=== PATIENT | male | born 1950 | race Caucasian/White ===

== ENCOUNTER 2018-01-03 06:07 | Inpatient (IN) | payer OTHER ==
[2017-12-12 11:13] VITALS: Ht 175.3 cm; Wt 96.6 kg
--- NOTE | 2017-12-12 11:35 | PAT Medication Instructions ---
Service Date Dec 12, 2017. Current Home Medication List Allopurinol (Zyloprim), 300 MG PO QAM Fenofibrate Micronized (Fenofibrate), 48 MG PO QAM Lisinopril (Zestril), 5 MG PO QAM Simvastatin (Zocor), 80 MG PO QAM Medication Instructions For Your Scheduled Surgery - Hold the following medications 48 hours prior to surgery: Fenofibrate Micronized (Fenofibrate), 48 MG PO QAM - Hold the following medications the morning of surgery: Lisinopril (Zestril), 5 MG PO QAM - Take the following medications the morning of surgery with a sip of water: Simvastatin (Zocor), 80 MG PO QAM Allopurinol (Zyloprim), 300 MG PO QAM If you have any questions please call us at [phone] or [phone] or [phone]
[2017-12-12 12:09] LABS: BASO % 1.2 %; BASO ABS # 0.11 K/uL (0-0.2); EOS % 3.5 %; EOS ABS # 0.33 K/uL (0-0.5); IG# 0.07 K/uL (0.00-0.02); LYMPH % 30.7 %; LYMPH ABS # 2.91 K/uL (1.2-3.4); MEAN CELL VOLUME 95.1 fL (80-100); MEAN CORPUSCULAR HEMOGLOBIN 33.2 pg (25-34); MEAN CORPUSCULAR HGB CONC 34.9 g/dl (32-36); MONO % 7.6 %; MONO ABS # 0.72 K/uL (0.11-0.59); NEUT % 56.3 %; NEUT ABS # 5.33 K/uL (1.4-6.5); PLATELET COUNT 239 K/uL (130-400); RED CELL DISTRIBUTION WIDTH CV 12.5 % (11.5-14.5); RED CELL DISTRIBUTION WIDTH SD 42.9 fL (36.4-46.3); WHITE BLOOD COUNT 9.47 K/uL (4.8-10.8)
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
[2017-12-12 14:05] LABS: CALCIUM 9.6 mg/dl (8.5-10.1); CREATININE 0.74 mg/dl (0.60-1.40); POTASSIUM 4.4 mmol/L (3.5-5.1)
[2018-01-03] VITALS (10 sets, daily range): BP systolic 107–172; BP diastolic 65–86; PULSE 59–88; TEMP 36.4–36.8; O2SAT 95–99
[~2018-01-03] VITALS: Ht 175.3 cm; Wt 96.6 kg
[~2018-01-03 06:07] MED LIST: ALLO300T80 PO; CEFAZOLIN 2000MG IV PUSH 15 ML IV SCH; FENO1CAP PO; LACTATED RINGER'S 1000ML 1,000 ML IV SCH; LISI-461 PO; SIMV80TA5 PO
[2018-01-03] MEDS ORDERED: FENTANYL CITRATE INJ 50 MCG/1 ML 2 ML VIAL ONE ×4 (06:43→08:57)
[2018-01-03] MEDS ORDERED: MIDAZOLAM HCL 1 MG/ML 2ML VIAL ONE (06:43)
[2018-01-03] MEDS ORDERED: BACITRACIN 50000 UNIT VIAL ONE (06:53)
[2018-01-03] MEDS ORDERED: BUPIVACAINE/EPINEPHRINE 0.5% MPF 1:200,000 30 ML VIAL ONE (06:53)
--- NOTE | 2018-01-03 07:30 | History & Physical Bridge Note ---
H&P Re-Evaluation Bridge Note: I have examined the patient, reviewed the History & Physical and in the interval since the performance of the History & Physical I have noted the following changes of clinical significance: No changes noted
--- NOTE | 2018-01-03 07:31 | History and Physical ---
History & Physical Date Jan 03, 2018. Chief Complaint . Back and leg pain History of Present Illness The patient is a 67 year old male with complaints of back and leg pain Additional History Hepatic Disease: No Endocrine Disorder: No Kidney Disease: No Hypertension: Yes Heart Disease: No Bleeding Tendencies: No Infectious Diseases: No Allergies Coded Allergies: No Known Allergies (Unverified , 01/03/18) Home Medications Scheduled Allopurinol (Zyloprim), 300 MG PO QAM Fenofibrate Micronized (Fenofibrate), 48 MG PO QAM Lisinopril (Zestril), 5 MG PO QAM Simvastatin (Zocor), 80 MG PO QAM Physical Examination Skin: warm/dry, no rash Eyes: normal inspection, EOMI, sclerae normal ENT: normal ENT inspection, pharynx normal Head: normocephalic, atraumatic Neck: supple, no adenopathy, trachea midline Respiratory/Chest: lungs clear, normal breath sounds, no respiratory distress Cardiovascular: regular rate, rhythm, no edema, no murmur Abdomen / GI: normal bowel sounds, non tender Back: normal inspection Extremities: normal inspection, normal range of motion Neurologic/Psych: no motor/sensory deficits, alert, normal reflexes, oriented x 3 Diagnosis Lumbar spinal stenosis Plan of Treatment L3 to S1 decompression and fusion
[2018-01-03] MEDS ORDERED: HYDROmorphone INJ 2 MG/ML SYR/VIAL ONE ×2 (07:59→09:51)
[2018-01-03] MEDS ORDERED: ONDANSETRON INJ 2 MG/ML 2 ML VIAL ONE ×2 (08:44→09:52)
[2018-01-03] MEDS ORDERED: PROPOFOL IV EMULSION 10 MG/ML 20 ML VIAL IV ONE (08:44)
[2018-01-03] MEDS ORDERED: DEXAMETHASONE SOD INJ 4 MG/ML VIAL ONE (08:44)
[2018-01-03] MEDS ORDERED: LIDOCAINE HCL 2% 2 ML VIAL (20MG/ML) ONE (08:44)
[2018-01-03] MEDS ORDERED: ATROPINE SULFATE 0.1 MG/ML 5ML SYR IV PRN (09:15)
[2018-01-03] MEDS ORDERED: HYDROmorphone INJ 1 MG/ML SYR IV PRN (09:15)
[2018-01-03] MEDS ORDERED: EpHEDrine SULFATE INJ 50 MG/ML AMP IV PRN (09:15)
[2018-01-03] MEDS ORDERED: LABETALOL HCL IV 5 MG/ML 20ML IV PRN (09:15)
[2018-01-03] MEDS ORDERED: ONDANSETRON INJ 2 MG/ML 2 ML VIAL IV PRN (09:15)
[2018-01-03] MEDS ORDERED: MEPERIDINE HCL 25 MG/ML CARP IV PRN (09:15)
[2018-01-03] MEDS ORDERED: FLOSEAL HEMOSTATIC MATRIX 10ML TOP ONE (09:34)
[2018-01-03] MEDS ORDERED: SODIUM CHLORIDE 0.9% 1000ML 1,000 ML IV SCH (09:46)
[2018-01-03] MEDS: SODIUM CHLORIDE 0.9% 1000ML 1,000 ML IV SCH ×3 (09:46→22:36)
--- NOTE | 2018-01-03 09:46 | [facility] Operative Report ---
Operative Report Operative Date Jan 03, 2018. Pre-Operative Diagnosis Lumbar Spinal Stenosis L3-S1 Post-Operative Diagnosis Lumbar Spinal Stenosis L3-S1 Procedure(s) Performed #1 lumbar decompression medial facetectomies foraminotomies L3 4 L4 5 L5-S1. #2 posterior spinal fusion L3 4 L4 5 L5-S1. #3 placement posterior segmental instrumentation L3 to S1. #4 interbody fusion L5-S1. #5 placement peek cage 10 x 26 mm at L5-S1. #6 placement of locally harvested morcellized autograft in the posterior lateral gutters. #7 placement infuse collagen sponge, mass graft in the posterior lateral gutters and ostial amp in the interbody spaces. Surgeon Region Manager Surgeon(s) SHONDA Mahmood Estimated Blood Loss 400 mL Findings Severe spinal stenosis Specimens None per surgeon. Anesthesia Type General Description of Procedure Patient was met with preoperatively case discussed all questions addressed. After informed consent obtained patient was taken to the operative suite underwent intubation and placed in a prone position on the Tyson table on top of the Darshan frame. All bony prominences were well-padded eyes inspected to ensure no external pressure placed upon them. This point the lumbar spine was prepped and draped in the normal sterile fashion. Sharp dissection with the assistance of Bovie cautery was performed onto an exposing the lamina and transverse processes of L3 L4-L5 and the sacroiliac bilaterally. Obvious pars defect appreciated at L5-S1. Complete laminectomy of L5 L4 and L3 was performed addressing severe lateral recess and foraminal stenosis. Pedicle screws were then placed in L3 L4-L5 S1 levels bilaterally with the assistance of fluoroscopy an appropriate size graeme placed. Through a transverse foraminal approach on the right a complete discectomy of L5 S1 was performed endplates graded to subcortical bleeding bone and a 10 x 26 mm peek cage filled with osteal bone graft tapped in position. Rods and then compressed locked and final position bilaterally. The transverse processes of L3 L4-L5 sacral alar burred to subcortical bleeding bone. Infuse collagen sponge mass graft locally harvested morcellized autograft was placed in the posterior gutters. 15 round SKIP drain inserted. Incision was then closed with 1 Vicryl in the fascia 2-0 Vicryl subcutaneous tensely 4-0 Monocryl for final skin closure Steri-Strips dressings placed. Patient was then awakened and taken PACU stable condition. Please note Jessie Whitlock was present at the entire procedure involved in patient positioning complex portions of the surgery and final skin closure. I attest to the content of the Intraoperative Record and any orders documented therein. Any exceptions are noted below.
[2018-01-03] MEDS ORDERED: VOLUVEN IN NSS ONE (09:48)
[2018-01-03] MEDS ORDERED: LABETALOL HCL IV 5 MG/ML 20ML IV ONE (09:52)
[2018-01-03] MEDS ORDERED: NEOSTIGMINE METHYLSULFATE 1 MG/ML 10ML VIAL ONE (09:52)
[2018-01-03] MEDS ORDERED: ESMOLOL HCL 10 MG/ML 10 ML VIAL ONE (09:52)
[2018-01-03] MEDS ORDERED: KETOROLAC TROMETHAMINE 30 MG/ML VIAL ONE (09:52)
[2018-01-03] MEDS ORDERED: GLYCOPYRROLATE INJ 0.2 MG/ML VIAL ONE (09:52)
[2018-01-03] MEDS ORDERED: METOPROLOL TARTRATE 1 MG/ML VIAL ONE (09:52)
[2018-01-03] MEDS ORDERED: DO NOT ADMINISTER FLU VACCINE PRN (10:00)
[2018-01-03] MEDS ORDERED: NALOXONE HCL 0.4 MG/1 ML VIAL/CARP IV PRN ×2 (10:00)
[2018-01-03] MEDS ORDERED: FAMOTIDINE 20 MG TAB PO PRN (10:00)
[2018-01-03] MEDS ORDERED: SOD PHOSPHATE/SOD BIPHOSPHATE ENEMA 132 ML BTL PR PRN (10:00)
[2018-01-03] MEDS ORDERED: LORAZEPAM 0.5 MG TAB PO PRN (10:00)
[2018-01-03] MEDS ORDERED: ALUMINUM/MAGNESIUM SUSP 30 ML UDC PO PRN (10:00)
[2018-01-03] MEDS ORDERED: DO NOT ADMINISTER PNEUMOCOCCAL VACCINE PRN (10:00)
[2018-01-03] MEDS ORDERED: MAGNESIUM HYDROXIDE SUSP 30 ML UDC PO PRN (10:00)
[2018-01-03] MEDS ORDERED: LORAZEPAM INJ 0.5 MG in SYRINGE 0.75 ML IV PRN (10:00)
[2018-01-03] MEDS ORDERED: METOCLOPRAMIDE HCL INJ 5 MG/ML 2 ML VIAL IV PRN (10:00)
[2018-01-03] MEDS ORDERED: ACETAMINOPHEN IV 100 ML IV PRN (10:00)
[2018-01-03] MEDS ORDERED: hydrOXYzine HCL 25 MG TAB PO PRN (10:00)
[2018-01-03] MEDS ORDERED: HYDROmorphone INJ 0.5 MG/0.5 ML SYR IV PRN (10:00)
[2018-01-03] MEDS ORDERED: PROMETHAZINE HCL INJ 12.5 MG in SODIUM CHLORIDE 0.9% 50ML 50 ML IV PRN (10:00)
[2018-01-03] MEDS ORDERED: BISACODYL 10 MG SUPP PR PRN (10:00)
--- NOTE | 2018-01-03 10:16 | DIAGNOSTIC IMAGING REPORT ---
LUMBAR SPINE 2 OR 3 VIEW CLINICAL HISTORY: L3-S1 DECOMPRESSION AND FUSION COMPARISON STUDY: No previous studies for comparison. Fluoroscopy time: 23 seconds. FINDINGS: 3 fluoroscopic images demonstrate an L5-S1 discectomy with interbody spacer placement. There is a posterior decompression. Bilateral pedicle screws are noted at the L3, L4, L5 and S1 levels with interconnecting rods. Hardware is intact. There is slight anterolisthesis of L5 on S1. IMPRESSION: Fluoroscopic images demonstrating an L5-S1 discectomy and L3-S1 bilateral pedicle screw fusion. Electronically signed by: Christopher Toscano M.D. 01/03/2018 10:14 AM Dictated Date/Time: 01/03/2018 10:14 AM
[2018-01-03] MEDS ORDERED: HYDROmorphone HCL 0.5MG/ML 50 ML CASSETTE ONE (10:17)
[2018-01-03] MEDS: FENTANYL CITRATE INJ 50 MCG/1 ML 2 ML VIAL IV PRN ×4 (10:18→10:33)
[2018-01-03] MEDS: HYDROmorphone HCL 0.5MG/ML 50 ML CASSETTE IV PRN ×3 (11:14→23:17)
--- NOTE | 2018-01-03 11:21 | Anesthesiology Progress Note ---
Anesthesia Post Op Note Date & Time Jan 03, 2018 at 11:21 Vital Signs Pain Intensity: 3 Vital Signs Past 12 Hours Date Time Temp Pulse Resp B/P (MAP) Pulse Ox O2 Delivery O2 Flow Rate FiO2 01/03/18 11:05 59 16 132/78 99 Nasal Cannula 3 01/03/18 10:50 36.2 59 16 142/82 99 Nasal Cannula 3 01/03/18 10:40 56 16 163/96 99 Nasal Cannula 3 01/03/18 10:30 58 16 170/86 94 Oxymask 3 01/03/18 10:20 75 16 170/86 100 Oxymask 5 01/03/18 10:13 36.2 83 16 176/99 97 Oxymask 5 01/03/18 06:22 36.5 65 16 172/86 96 Room Air Notes Mental Status: alert / awake / arousable, participated in evaluation Pt Amnestic to Procedure: Yes Nausea / Vomiting: adequately controlled Pain: adequately controlled Airway Patency, RR, SpO2: stable & adequate BP & HR: stable & adequate Hydration State: stable & adequate Anesthetic Complications: no major complications apparent
[2018-01-03] MEDS ORDERED: RXC5 PO (12:34)
--- NOTE | 2018-01-03 12:35 | Discharge Instructions ---
Discharge Instructions Date of Service Jan 03, 2018. Admission Reason for Admission: Lumbar Spinal Stenosis L3-S1 Discharge Discharge Diagnosis / Problem: lumbar stenosis Discharge Goals Goal(s): Improve function Activity Recommendations Activity Limitations: per Instructions/Follow-up section . Instructions / Follow-Up Instructions / Follow-Up ACTIVITY RECOMMENDATIONS: SELF CARE INSTRUCTIONS AFTER THORACIC/LUMBAR FUSIONS 1. You may walk to your tolerance. It is good exercise for your legs and back. Expect some back and intermittent leg aches and pains. 2. You may perform "counter-top" level activities (make a sandwich, darryn with a project, etc.). 3. No bending or lifting of more than 10 pounds or back twisting of any nature (roll like a log when turning in bed). 4. You may ride in a car for 20-30 minutes at a time. No driving until after your first visit with your doctor. 5. Frequent changes of position and restricting sitting to 30 minutes at a time will help limit the amount of back spasms and stiffness you may experience. 6. You may discontinue the use of ambulatory aids (cane, crutches, etc.) once your strength and confidence allow. 7. You may county administrator the shower and let water strike your incision when you arrive home at least once daily. Do not take a tub bath, sit in a hot tub or go into a swimming pool until after your first recheck in the office. SPECIAL CARE INSTRUCTIONS: VERY IMPORTANT TO READ AND REVIEW A. Your surgical incision has been closed with a cosmetic suture under the skin that will dissolve in about 6 weeks. In 14 days, you can use a pair of clean scissors and cut the suture that is left outside of the skin at the ends of your incision. 1. The small skin tapes can be removed 7 days after surgery if they have not fallen off by that point. 2. You may keep the wound open to air as much as possible to promote healing after post-op day number 5 unless told otherwise by your doctor. 3. If you think the wound looks like it is becoming infected (redness or worsening drainage) and/or you are experiencing fever, chill or worsening back pain and muscle spasms, contact the office so that we may evaluate you as soon as possible. B. Complications are uncommon, but please contact us if you have any signs or symptoms of: 1. wound infection (fever higher than 102.5 degrees F, redness, separation of wound, drainage, or increasing pain from the incision) 2. blood clots in legs (pain, swelling, redness and warmth in legs) 3. urinary tract infection (fever higher than 102.5 degrees F, burning upon urination or increased frequency of urination) 4. nerve problems (inability to walk on your toes or heels, numbness, loss of bowel or bladder control) 5. any other symptoms that concern you C. Please call the office at if you have any concerns or questions about your operation or recovery. D. No smoking! Smoking drastically decreases the chance of a solid fusion. E. Do not take any anti-inflammatory medications (Indocin, Advil, Motrin, Aspirin, Naprosyn, etc.) as these may inhibit the chance of a solid fusion. Tylenol is okay to take for pain. MANAGING PAIN AFTER SPINAL SURGERY 1. Narcotic medication is intended for short-term use and will be provided for surgical pain. Surgical pain usually lasts for a period of 4-6 weeks. Narcotic medication includes Percocet, Vicodin, Darvocet, Tylenol #3 or Lortab. 2. Longer-term pain is more appropriately treated with non-narcotic medication such as Tylenol ES. 3. Muscle spasm is not appropriately treated with narcotics. Muscle relaxers such as Soma, Flexeril or Skelaxin can be used along with Tylenol ES. 4. Remember that we all live with some "aches and pains". This is not unusual or uncommon after an injury or as we get older. a. Back pain is expected and may include muscle spasms for 4 to 6 weeks after surgery. The pain should gradually improve. If the pain worsens for no apparent reason, please contact the office. b. Intermittent leg pain may also be experienced and should not be concerned about unless it worsens for no apparent reason. If so, please contact the office. 5. We will provide appropriate medication within the normal guidelines of their prescribed use. We will also be very cautious and aware of potential abuse and extended duration of patients' medication needs. a. Pain medications are for your comfort and to assist with sleep and rest so that the tissue can heal. They are not provided in order to return to normal activity and should not be used through the day. To do so or worsening pain at night can result from ongoing tissue damage and development of tolerance to the prescribed medicine. 6. Please allow 2-3 days to process refills. Prescriptions will not be mailed but must be picked up at the office. FOLLOW UP VISIT: Keep your scheduled follow-up appointment. Any questions, please call the office at . Current Hospital Diet Patient's current hospital diet: Regular Diet Discharge Diet Recommended Diet: Regular Diet Procedures Procedures Performed: #1 lumbar decompression medial facetectomies foraminotomies L3 4 L4 5 L5-S1. #2 posterior spinal fusion L3 4 L4 5 L5-S1. #3 placement posterior segmental instrumentation L3 to S1. #4 interbody fusion L5-S1. #5 placement peek cage 10 x 26 mm at L5-S1. #6 placement of locally harvested morcellized autograft in the posterior lateral gutters. #7 placement infuse collagen sponge, mass graft in the posterior lateral gutters and ostial amp in the interbody spaces. Pending Studies Studies pending at discharge: no Medical Emergencies . Who to Call and When: Medical Emergencies: If at any time you feel your situation is an emergency, please call 911 immediately. . Non-Emergent Contact Non-Emergency issues call your: Primary Care Provider . "Provider Documentation" section prepared by Héctor Garner. . VTE Core Measure Inpt VTE Proph given/why not?: Tee Bain, SCD's
[2018-01-03] MEDS: CEFAZOLIN IV 2,000 MG in SYRINGE 0 ML IV SCH (16:09)
[2018-01-03] MEDS: DOCUSATE SODIUM/SENNA 50/8.6MG TAB PO SCH (21:13)
[2018-01-04] MEDS: CEFAZOLIN IV 2,000 MG in SYRINGE 0 ML IV SCH (00:40)
[2018-01-04 04:10] VITALS: BP 115/61; PULSE 82; TEMP 36.6; O2SAT 96
[2018-01-04] MEDS: SODIUM CHLORIDE 0.9% 1000ML 1,000 ML IV SCH (04:20)
[2018-01-04] MEDS ORDERED: HYDROmorphone INJ 0.5 MG/0.5 ML SYR IV PRN (06:00)
[2018-01-04] MEDS ORDERED: DC PCA ONE (06:00)
[2018-01-04] MEDS ORDERED: HYDROmorphone INJ 1 MG/ML SYR IV PRN (06:00)
[2018-01-04] MEDS ORDERED: NURSING DECISION MEDICATION ORDER SCH (06:30)
[2018-01-04 07:02] LABS: BASO % 0.1 %; BASO ABS # 0.01 K/uL (0-0.2); EOS % 0.1 %; EOS ABS # 0.01 K/uL (0-0.5); HEMOGLOBIN 11.2 g/dL (14.0-18.0); IG# 0.06 K/uL (0.00-0.02); LYMPH ABS # 1.34 K/uL (1.2-3.4); MEAN CELL VOLUME 95.7 fL (80-100); MEAN CORPUSCULAR HEMOGLOBIN 32.5 pg (25-34); MEAN CORPUSCULAR HGB CONC 33.9 g/dl (32-36); MEAN PLATELET VOLUME 10.1 fL (7.4-10.4); MONO % 8.4 %; MONO ABS # 1.25 K/uL (0.11-0.59); NEUT ABS # 12.19 K/uL (1.4-6.5); PLATELET COUNT 196 K/uL (130-400); RED CELL DISTRIBUTION WIDTH CV 12.6 % (11.5-14.5); RED CELL DISTRIBUTION WIDTH SD 43.5 fL (36.4-46.3); WHITE BLOOD COUNT 14.86 K/uL (4.8-10.8)
[2018-01-04 07:29] VITALS: BP 129/77; PULSE 63; TEMP 36.6; O2SAT 98
[2018-01-04 07:34] LABS: CALCIUM 8.5 mg/dl (8.5-10.1); CREATININE 0.79 mg/dl (0.60-1.40)
[2018-01-04] MEDS: SIMVASTATIN 80 MG TAB PO SCH (08:41)
[2018-01-04] MEDS: ALLOPURINOL 300 MG TAB PO SCH (08:41)
[2018-01-04] MEDS: LISINOPRIL 5 MG TAB PO SCH (08:41)
[2018-01-04] MEDS: OXYCODONE HCL IR 5 MG TAB (IMMEDIATE RELEASE) PO PRN ×3 (08:42→18:59)
--- NOTE | 2018-01-04 09:00 | Clinical Documentation Query ---
CLINICAL DOCUMENTATION QUERY 67 yo male admitted for lumbar spinal stenosis and underwent a surgical fusion. His estimated blood loss was 400ml. His Hgb was 15.0 and dropped to 11.2. In your clinical opinion is this patient being managed for: ( x ) Acute blood-loss anemia ( ) Not Agree ( ) Other explanation of clinical findings (Please Explain) ( ) Unable to determine (Please Define) ( ) Need to Discuss The medical record reflects the following clinical findings, treatment, and risk factors. Clinical Indicators: As above Treatment: H&H, type and cross 2 units PRBCs Risk Factors: Post-surgical event with expected blood loss Please clarify and document your clinical opinion in the progress notes and discharge summary. Terms such as "probable", "suspected", "likely", "questionable", "possible", or "still to be ruled out" are acceptable. IF IN AGREEMENT, YOU MUST DOCUMENT ABOVE DIAGNOSTIC STATEMENT IN DAILY PROGRESS NOTES AND DISCHARGE SUMMARY. This document is not part of the patient's record. Thank You, Michelle Arredondo RN [phone]
[2018-01-04 11:13] VITALS: BP 119/73; PULSE 73; O2SAT 97
[2018-01-04] MEDS ORDERED: KETOROLAC TROMETHAMINE 15 MG/ML VIAL IV. PRN (13:00)
--- NOTE | 2018-01-04 13:06 | Progress Note ---
Progress Note Date of Service Jan 04, 2018. Progress Note Patient's back pain is controlled. He states his leg pain is markedly improved. On exam vital signs are stable strength intact. Assessment status post lumbar decompression fusion. Plan at this time will continue physical therapy today consider home the next few days.
[2018-01-04 15:10] VITALS: BP 126/72; PULSE 70; TEMP 36.9; O2SAT 97
[2018-01-04] MEDS: ACETAMINOPHEN 500 MG TAB PO PRN (17:29)
[2018-01-04] MEDS: ONDANSETRON INJ 2 MG/ML 2 ML VIAL IV PRN (21:35)
[2018-01-04] MEDS: DOCUSATE SODIUM/SENNA 50/8.6MG TAB PO SCH (21:36)
[2018-01-04 23:08] VITALS: BP 146/87; PULSE 78; TEMP 36.9; O2SAT 97
[2018-01-05] MEDS: ONDANSETRON INJ 2 MG/ML 2 ML VIAL IV PRN (04:08)
[2018-01-05] MEDS: OXYCODONE HCL IR 5 MG TAB (IMMEDIATE RELEASE) PO PRN ×4 (04:22→20:20)
[2018-01-05 05:59] VITALS: BP 106/61; PULSE 65; TEMP 37; O2SAT 96
[2018-01-05] MEDS: POLYETHYLENE (MIRALAX) 17 GM PACK PO SCH ×4 (06:00→23:38)
[2018-01-05 07:10] VITALS: BP 128/83; PULSE 67; TEMP 36.7; O2SAT 97
[2018-01-05] MEDS: ALLOPURINOL 300 MG TAB PO SCH (08:20)
[2018-01-05] MEDS: SIMVASTATIN 80 MG TAB PO SCH (08:20)
[2018-01-05] MEDS: LISINOPRIL 5 MG TAB PO SCH (08:20)
--- NOTE | 2018-01-05 12:44 | Progress Note ---
Progress Note Date of Service Jan 05, 2018. Progress Note Patient is doing quite well today. Back pain control. No leg symptoms. Vital signs are stable. On exam his good strength testing. Assessment status post lumbar decompression fusion. Plan at this time we anticipate discharge home tomorrow.
[2018-01-05 15:10] VITALS: BP 130/84; PULSE 79; TEMP 36.9; O2SAT 95
[2018-01-05 15:45] VITALS: O2SAT 95
[2018-01-05] MEDS: DOCUSATE SODIUM/SENNA 50/8.6MG TAB PO SCH (20:20)
[2018-01-05 23:13] VITALS: BP 127/81; PULSE 88; TEMP 37.1; O2SAT 96
[2018-01-05] MEDS: ACETAMINOPHEN 500 MG TAB PO PRN (23:39)
[2018-01-06] MEDS: POLYETHYLENE (MIRALAX) 17 GM PACK PO SCH ×2 (05:56→12:34)
[2018-01-06 07:33] VITALS: BP 123/78; PULSE 73; TEMP 36.7; O2SAT 98
[2018-01-06] MEDS: OXYCODONE HCL IR 5 MG TAB (IMMEDIATE RELEASE) PO PRN ×2 (08:02→13:06)
[2018-01-06] MEDS: SIMVASTATIN 80 MG TAB PO SCH (08:03)
[2018-01-06] MEDS: ALLOPURINOL 300 MG TAB PO SCH (08:03)
[2018-01-06] MEDS: LISINOPRIL 5 MG TAB PO SCH (08:03)
[2018-01-06 13:07] VITALS: BP 123/78; PULSE 73; TEMP 36.7; O2SAT 98
== END 2018-01-06 14:00 | disposition home or self-care (01) | DRG 455 ==
LOC: C.ACU 06:07 → C.3E 07:30 → ENRESERV 10:48
PROVIDERS: ADMIT Orthopaedic Surgery Orthopaedic Surgery of the Spine; ATTEND Orthopaedic Surgery Orthopaedic Surgery of the Spine
PROC: 0SG3071 Fusion of Lumbosacral Joint with Autologous Tissue Substitute, Posterior Approach, Posterior Column, Open Approach (ICD-10-PCS; principal; 2018-01-03 07:45)
PROC: 0SG30AJ Fusion of Lumbosacral Joint with Interbody Fusion Device, Posterior Approach, Anterior Column, Open Approach (ICD-10-PCS; principal; 2018-01-03 07:45)
PROC: 0SG10AJ Fusion of 2 or more Lumbar Vertebral Joints with Interbody Fusion Device, Posterior Approach, Anterior Column, Open Approach (ICD-10-PCS; principal; 2018-01-03 07:45)
PROC: 0ST20ZZ Resection of Lumbar Vertebral Disc, Open Approach (ICD-10-PCS; principal; 2018-01-03 07:45)
PROC: 0SG1071 Fusion of 2 or more Lumbar Vertebral Joints with Autologous Tissue Substitute, Posterior Approach, Posterior Column, Open Approach (ICD-10-PCS; principal; 2018-01-03 07:45)
PROC: 0ST40ZZ Resection of Lumbosacral Disc, Open Approach (ICD-10-PCS; principal; 2018-01-03 07:45)
DX: M48.07 Spinal stenosis, lumbosacral region (principal); I10 Essential (primary) hypertension